=== PATIENT | female | born 1955 ===

== ENCOUNTER → 2020-08-29 | Outpatient (CLI) | payer MEDICARE ==
--- NOTE | 2020-08-29 14:31 | KCIC ---
Examination: CT right hip without contrast HISTORY: History of right hip pain, surgery COMPARISON: None available Technique: Axial CT images of the right hip were performed without contrast. Coronal and sagittal reformats are performed Exposure: One or more of the following individualized dose reduction techniques were utilized for this examination: 1. Automated exposure control 2. Adjustment of the mA and/or kV according to patient size 3. Use of iterative reconstruction technique Findings/ impression: Right total hip arthroplasty changes in normal alignment. Subchondral cystic changes identified in the right acetabulum likely degenerative changes. There is no obvious acute fracture identified however evaluation is limited due to streak artifact from right hip prosthesis.The visualized soft tissue grossly appears unremarkable. Electronically signed by: Maximiliano Kelsey MD (08/29/2020 2:28 PM) [id number]
== END ==
LOC: KCIC CT 12:38
PROVIDERS: ATTEND Orthopaedic Surgery
DX: M25.551 Pain in right hip (principal); Z96.641 Presence of right artificial hip joint
CPT/HCPCS: 73700

== ENCOUNTER → 2020-09-27 | Outpatient (CLI) | payer MEDICARE ==
--- NOTE | 2020-09-27 16:02 | KCIC ---
EXAMINATION: MRI RIGHT LOWER EXTREMITY JOINT W INDICATIONS: Right hip prosthesis, pain. Evaluate for stress fracture. Persistent pain since right h ip arthroplasty 07/16/2020. Painful to bear weight. TECHNIQUE: Multiplanar multisequence MRI of the right hip was obtained without contrast with metal s uppression technique. COMPARISON: CT right hip 08/29/2020 FINDINGS: A right total hip prosthesis results in susceptibility artifact, limiting the exam. T2 signal at the distal femoral stem of the prosthesis is most likely artifact. There is no discrete low signal fractu re line visualized or significant surrounding soft tissue abnormality. No evidence of fracture elsewh ere in the pelvis. A T2 hyperintense, T1 hypointense cyst in the superior acetabulum correlates with findings on prior CT. There is no surrounding marrow edema. There is fluid extending along the anterolateral aspect of the femoral neck component and the tensor fascia yaya. The fluid along the femoral neck measures approximately 4.5 x 2 x 2 cm (CC by AP by zandra mancia), and is deep to the surgical incision, likely postoperative. This was all likely present on 10/29/2019. No well organized fluid collection or soft tissue mass around the prosthesis. No large muna nt effusion. The right medius and minimus tendons are intact. Hamstrings tendons, rectus femoris tendon, and adduc tor tendons are intact. Muscles are normal in signal. Visualized pelvic contents are unremarkable. Th ere are small bilateral inguinal lymph nodes. Mild degenerative joint disease of the left hip with sm all subchondral cysts. IMPRESSION: 1. Right total hip prosthesis. Artifact from the prosthesis limits the exam. 2. There is no definite fracture. Small amount of T2 hyperintense signal abnormality at the distal as pect of the femoral stem component is likely artifact. 3. No gluteus medius or minimus tendon tear. 4. Small amount of fluid along the anterolateral aspect of the femoral neck and extending along the t ensor fascia yaya. This is deep to the incision and most likely postoperative, and appears unchanged from 08/29/2020. No loculated fluid collection, joint effusion, or soft tissue mass. Electronically signed by: Yazmin Josue MD (09/27/2020 4:00 PM) [id number]
== END ==
LOC: KCIC MRI 14:33
PROVIDERS: ATTEND Orthopaedic Surgery
DX: M25.551 Pain in right hip (principal); M16.12 Unilateral primary osteoarthritis, left hip; Z96.641 Presence of right artificial hip joint
CPT/HCPCS: 73721

== ENCOUNTER → 2020-10-30 | Outpatient (CLI) | payer MEDICARE ==
--- NOTE | 2020-10-30 13:03 | KCIC ---
MR LUMBAR SPINE WO [id number] Date: 10/30/2020 10:12 AM Indication: Reason: PAIN IN RIGHT HIP / Spl. Instructions: / History: Continued right hip discomfor t after total hip last July. Comparison: None. Technique: Multi-planar multi-weighted magnetic resonance imaging of the lumbar spine was performed w ithout intravenous contrast using the standard lumbar spine protocol. FINDINGS: The lumbar spine is normally aligned. No acute fracture. Moderate multilevel degenerative disc desicc ation and disc height loss. Multilevel trace degenerative endplate edema. The conus terminates at a normal level. No abnormal signal is seen within the visualized distal spina l cord. No clumping of intrathecal nerve roots. No soft tissue abnormality in the visualized abdomen or pelvis. T12-L1: No disc bulge. No facet arthropathy. No significant spinal stenosis or neural foraminal narro wing. L1-L2: Disc bulge. Mild facet arthropathy. No significant spinal stenosis. Mild bilateral neural fora aditya narrowing. L2-L3: Disc bulge. Moderate facet arthropathy. No significant spinal stenosis. Mild right neural fora aditya narrowing. L3-L4: Disc bulge. Mild to moderate facet arthropathy. No significant spinal stenosis. Mild bilateral neural foraminal narrowing. L4-L5: Disc bulge. Mild right and moderate left facet arthropathy. Prominent dorsal epidural fat. Mod erate to severe spinal canal stenosis and left lateral recess narrowing. Mild right and severe left n eural foraminal narrowing. L5-S1: Disc bulge with far lateral protrusions. Mild facet arthropathy. No significant spinal stenosi s. Mild lateral recess narrowing. Severe bilateral neural foraminal narrowing. IMPRESSION: Lumbar spondylosis, worst at L4-5 and L5-S1 as detailed above. Electronically signed by: Trevor Henderson MD (10/30/2020 1:00 PM) [id number]
== END ==
LOC: KCIC MRI 10:03
PROVIDERS: ATTEND Orthopaedic Surgery
DX: M47.817 Spondylosis without myelopathy or radiculopathy, lumbosacral region (principal); M51.27 Other intervertebral disc displacement, lumbosacral region; M48.07 Spinal stenosis, lumbosacral region; M12.88 Other specific arthropathies, not elsewhere classified, other specified site
CPT/HCPCS: 72148